=== PATIENT | male | born 1960 | race Caucasian/White ===

== ENCOUNTER 2021-08-17 06:12 | Emergency (ER) | payer MEDICARE, MEDICAID ==
[~2021-08-17] VITALS: Ht 182.9 cm; Wt 86.4 kg
[~2021-08-17 06:12] MED LIST: NOCURR
[2021-08-17 06:15] VITALS: BP 130/75
== END 2021-08-17 08:05 | disposition home or self-care (01) ==
LOC: EMS 06:13
DX: G89.29 Other chronic pain (principal); M79.671 Pain in right foot; M79.672 Pain in left foot; F41.9 Anxiety disorder, unspecified
CPT/HCPCS: 99281; Z7502